=== PATIENT | female | born 1990 | race Hispanic/Latino ===

== ENCOUNTER 2019-03-08 15:18 | Inpatient (IN) | payer MEDICAID, OTHER ==
[~2019-03-08] VITALS: Ht 149.9 cm; Wt 71.7 kg
[~2019-03-08 15:18] MED LIST: OMEP-272 PO; OMEP40CA37 PO; PROM25 PO
[2019-03-08 16:00] VITALS: BP 102/61
[2019-03-08 16:40] LABS: APPEARANCE,URINE CLEAR (CLEAR); BILIRUBIN,URINE SMALL (NEGATIVE); COLOR,URINE YELLOW (YELLOW); GLUCOSE, URINE (UA) NEGATIVE (NEGATIVE); KETONES,URINE >=80 mg/dL (NEGATIVE); LEUKOCYTE ESTERASE ,URINE NEGATIVE (NEGATIVE); NITRATE,URINE NEGATIVE (NEGATIVE); OCCULT BLOOD,URINE SMALL (NEGATIVE); PROTEIN,URINE TRACE mg/dL (NEGATIVE); UROBILINOGEN,URINE 0.2 mg/dL (0.2-1.0)
[2019-03-08 16:49] LABS: BACTERIA,URINE Few /HPF (None Seen); MUCUS,URINE Moderate LPF (None Seen)
[2019-03-08] MEDS: ONDANSETRON HCL 4 MG/2 ML VIAL IVP PRN (16:54)
[2019-03-08] MEDS: DEXTROSE 5%-LACTATED RINGERS 1,000 ML IV SCH ×2 (16:54→22:42)
[2019-03-08 19:20] VITALS: BP 114/72
--- NOTE | 2019-03-08 19:20 | NUR ---
Activity: Patient awake in bed claimed, " I felt nauseated and my throat hurts because of throwing up more with saliva. Can I have medication for heartburn." Patient inform that Dr. Rae was called and waited for him to call back or if not we will call him back again. Plan of care discussed with patient verbalizes understanding.
--- NOTE | 2019-03-08 19:55 | NUR ---
Communication: Dr. Rae called via Telephone informed that patient requested medication for heartburn because she felt her throat hurts because of the vomiting. Received order from Dr. Rae to give Mylanta 30 ml q 6 hours p.o. for Nausea. Orders noted.
[2019-03-08] MEDS ORDERED: MAG HYDROX/AL HYDROX/SIMETH ES 30 ML SUSP UDCUP PO PRN (19:56)
--- NOTE | 2019-03-08 22:40 | NUR ---
Patient vomited: Patient claimed, " I vomited a while ago." Vomitus was light green in color watery. " Informed that I'll give Zofran at 0055 due time. Patient verbalizes understanding.
[2019-03-08 23:47] VITALS: BP 95/62
[2019-03-09] MEDS: ONDANSETRON HCL 4 MG/2 ML VIAL IVP PRN (01:12)
[2019-03-09] MEDS: DEXTROSE 5%-LACTATED RINGERS 1,000 ML IV SCH ×4 (04:33→23:45)
[2019-03-09 04:35] VITALS: BP 115/56
[2019-03-09 07:22] LABS: CREATININE 0.7 mg/dL (0.5-1.5); THYROID STIMULATING HORMONE 1.78 uIU/mL (0.36-3.74)
[2019-03-09 07:33] VITALS: BP 109/54
[2019-03-09] MEDS: PROMETHAZINE HCL 25 MG/ML 1ML AMPULE IM PRN ×2 (08:46→18:58)
[2019-03-09] MEDS: FAMOTIDINE/PF 20 MG/2 ML VIAL IV SCH ×2 (09:15→21:32)
[2019-03-09 11:51] VITALS: BP 103/56
[2019-03-09 16:03] VITALS: BP 103/56
[2019-03-09 19:35] VITALS: BP 98/52
[2019-03-09 23:55] VITALS: BP 91/48
[2019-03-10 03:36] VITALS: BP 122/71
[2019-03-10 07:28] VITALS: BP 104/56
[2019-03-10] MEDS: FAMOTIDINE/PF 20 MG/2 ML VIAL IV SCH ×2 (09:28→21:29)
[2019-03-10 11:44] VITALS: BP 111/67
--- NOTE | 2019-03-10 13:05 | NUR ---
NAUSEA PT ATE APPLESAUCE, FELT NAUSEOUS, DID NOT EAT REST OF MEAL, NO EMESIS, JUST NAUSEA, MEDICATED WITH PHENERGAN IM, WILL CONTINUE TO MONITOR
[2019-03-10] MEDS: PROMETHAZINE HCL 25 MG/ML 1ML AMPULE IM PRN (13:07)
[2019-03-10 16:04] VITALS: BP 112/67
[2019-03-10 19:30] VITALS: BP 104/57
[2019-03-11 00:20] VITALS: BP 93/53
[2019-03-11 04:16] VITALS: BP 93/50
[2019-03-11 07:40] VITALS: BP 118/70
[2019-03-11] MEDS: FAMOTIDINE/PF 20 MG/2 ML VIAL IV SCH (07:58)
--- NOTE | 2019-03-11 08:00 | NUR ---
DURING ASSESSMENT PATIENT STATES FEELING NAUSEATED A LITTLE BIT AND WAS GIVEN PEPCID. DR. JORDAN ROUNDED AT 0750 AND INDICATED PATIENT COULD BE DISCHARGED IF NO MORE EMESIS.
--- NOTE | 2019-03-11 10:00 | NUR ---
CHECKED ON PATIENT AND VERBALIZES NO NAUSEA AND NO EMESIS. PIV REMOVED AND INSTRUCTED PATIENT DISCHARGE INSTRUCTIONS WOULD BE GIVEN.
--- NOTE | 2019-03-11 10:55 | NUR ---
PATIENT WAS GIVEN DISCHARGE INSTRUCTIONS AND WAS TAKEN VIA W/C TO [facility] AND WAS DISCHARGED TO HER SPOUSE.
[2019-03-13] MEDS ORDERED: PROM25 PO (00:24)
== END 2019-03-11 10:55 | disposition home or self-care (01) | DRG 566 ==
LOC: WSH 15:18 → OBSVTOIN 15:18
PROVIDERS: ADMIT Specialist; ATTEND Specialist
DX: O21.0 Mild hyperemesis gravidarum (principal); Z3A.01 Less than 8 weeks gestation of pregnancy; Z88.8 Allergy status to other drugs, medicaments and biological substances
CPT/HCPCS: 36415; 80048; 81001; 84443; G0378; J2405; J2550; J3490

== ENCOUNTER 2019-09-04 03:53 | Observation (INO) | payer MEDICAID ==
[~2019-09-04] VITALS: Ht 149.9 cm; Wt 75.3 kg
[~2019-09-04 03:53] MED LIST changes: +FAMO-136 PO; -OMEP-272 PO; -OMEP40CA37 PO; +ONDA4TAB4 PO
[2019-09-04 04:22] LABS: APPEARANCE,URINE Clear (CLEAR); BILIRUBIN,URINE Negative (NEGATIVE); COLOR,URINE Yellow (YELLOW); GLUCOSE, URINE (UA) Negative (NEGATIVE); KETONES,URINE Negative (NEGATIVE); LEUKOCYTE ESTERASE ,URINE Small (NEGATIVE); NITRATE,URINE Negative (NEGATIVE); OCCULT BLOOD,URINE Negative (NEGATIVE); PH,URINE 6.5 (5.0-8.0); PROTEIN,URINE Negative (NEGATIVE); UROBILINOGEN,URINE 0.2 mg/dL (0.2-1.0)
[2019-09-04 04:29] LABS: AMPHET/METH SCREEN,URINE NEGATIVE (NEGATIVE); BARBITURATE SCREEN, URINE NEGATIVE (NEGATIVE); BENZODIAZEPINES SCREEN,URINE NEGATIVE (NEGATIVE); CANNABINOID SCREEN,URINE NEGATIVE (NEGATIVE); COCAINE SCREEN,URINE NEGATIVE (NEGATIVE); OPIATE SCREEN,URINE NEGATIVE (NEGATIVE); PHENCYCLIDINE SCREEN,URINE NEGATIVE (NEGATIVE)
[2019-09-04 04:52] VITALS: BP 132/80
[2019-09-04] MEDS ORDERED: TERBUTALINE SULFATE VIAL 1MG/ML SQ PRN (05:00)
[2019-09-04] MEDS ORDERED: LACTATED RINGERS 1000ML IV ONE (05:00)
[2019-09-04] MEDS ORDERED: LACTATED RINGERS 1000ML 1,000 ML IV SCH (05:00)
[2019-09-04 05:01] LABS: BACTERIA,URINE Few /HPF (None Seen); RBC,URINE 0-1 /HPF (0-1)
== END 2019-09-04 10:26 | disposition home or self-care (01) ==
LOC: EDH 03:53 → LDH 03:54
PROVIDERS: ADMIT Specialist; ATTEND Specialist
DX: O26.893 Other specified pregnancy related conditions, third trimester (principal); R10.2 Pelvic and perineal pain; O99.89 Other specified diseases and conditions complicating pregnancy, childbirth and the puerperium; M54.5 Low back pain; Z87.19 Personal history of other diseases of the digestive system; Z3A.31 31 weeks gestation of pregnancy
CPT/HCPCS: 80305; 81001; 99284; G0378 ×6; J7120; 96360; 96361

== ENCOUNTER 2019-10-15 02:16 | Observation (INO) | payer MEDICAID ==
[~2019-10-15] VITALS: Ht 149.9 cm; Wt 78.9 kg
[2019-10-15 02:30] VITALS: BP 125/78
[2019-10-15] MEDS ORDERED: LACTATED RINGERS 1000ML IV PRN (02:30)
[2019-10-15 02:42] LABS: APPEARANCE,URINE Turbid (CLEAR); BILIRUBIN,URINE Negative (NEGATIVE); COLOR,URINE Yellow (YELLOW); GLUCOSE, URINE (UA) Negative (NEGATIVE); KETONES,URINE Negative (NEGATIVE); LEUKOCYTE ESTERASE ,URINE Large (NEGATIVE); NITRATE,URINE Negative (NEGATIVE); OCCULT BLOOD,URINE Negative (NEGATIVE); PH,URINE 6.5 (5.0-8.0); PROTEIN,URINE Trace mg/dL (NEGATIVE); UROBILINOGEN,URINE 0.2 mg/dL (0.2-1.0)
[2019-10-15 02:55] LABS: BACTERIA,URINE Moderate /HPF (None Seen); RBC,URINE 0-1 /HPF (0-1)
[2019-10-15 02:56] LABS: SQUAMOUS EPITHELIAL CELL,UR Few /HPF (0-2)
[2019-10-15] MEDS ORDERED: LACTATED RINGERS 1000ML 1,000 ML IV PRN (03:22)
[2019-10-15] MEDS ORDERED: CLINDAMYCIN 600 MG/D5% WATER 50 ML IV SCH (03:30)
[2019-10-15 03:37] LABS: HEMATOCRIT 35.4 % (36-48); MEAN CORPUSCULAR HEMOGLOBIN 27.6 pg (27.0-33.0); MEAN CORPUSCULAR HGB CONC 32.8 g/dL (32.0-36.0); MEAN CORPUSCULAR VOLUME 84.3 fL (79-99); PLATELET COUNT (AUTO) 287 K/uL (130-400); RED CELL DISTRIBUTION WIDTH 14.1 % (11.0-15.5); WHITE BLOOD COUNT (AUTO) 12.7 K/uL (4.8-10.8)
--- NOTE | 2019-10-15 10:27 | NUR ---
CM NOTE PATIENT DISCHARGED HOME, GONE. PER NURSE, NO NEEDS VERBALIZED.
[2019-10-16 07:11] LABS: HEPATITIS Bs ANTIGEN SCREEN P Negative (Negative)
== END 2019-10-15 08:07 | disposition home or self-care (01) ==
LOC: EDH 02:16 → LDH 02:17
PROVIDERS: ADMIT Specialist; ATTEND Specialist
DX: O62.9 Abnormality of forces of labor, unspecified (principal); Z3A.37 37 weeks gestation of pregnancy
CPT/HCPCS: 36415; 81001; 85027; 86592; 86850; 86900; 86901; 87088; 87340; 96365; 99284; G0378 ×6; J3490; J7120 ×2; 96360; 96361

== ENCOUNTER 2019-12-28 06:08 | Day surgery (SDC) | payer MEDICAID ==
[2019-12-23 15:36] LABS: BASOPHILS % (AUTO) 0.2 % (0.0-5.0); EOSINOPHILS % (AUTO) 2.2 % (0.0-8.0); HEMATOCRIT 40.2 % (36-48); LYMPHOCYTES % (AUTO) 24.5 % (21.0-51.0); MEAN CORPUSCULAR HEMOGLOBIN 26.4 pg (27.0-33.0); MEAN CORPUSCULAR HGB CONC 31.8 g/dL (32.0-36.0); MEAN CORPUSCULAR VOLUME 83.1 fL (79-99); MONOCYTES % (AUTO) 9.3 % (3.0-13.0); NEUTROPHILS % (AUTO) 63.6 % (40.0-77.0); PLATELET COUNT (AUTO) 449 K/uL (130-400); RED BLOOD CELL COUNT(AUTO) 4.84 MIL/uL (4.00-5.50); RED CELL DISTRIBUTION WIDTH 12.9 % (11.0-15.5); WHITE BLOOD COUNT (AUTO) 9.7 K/uL (4.8-10.8)
[2019-12-27 10:20] VITALS: BP 124/69
[2019-12-28] VITALS (19 sets, daily range): BP systolic 113–136; BP diastolic 61–77
[~2019-12-28] VITALS: Ht 152.4 cm; Wt 67.9 kg
[~2019-12-28 06:08] MED LIST changes: -FAMO-136 PO; +LACTATED RINGERS 1000ML 1,000 ML IV SCH; +LORA-575 PO; -ONDA4TAB4 PO; +PANT40TA54 PO; -PROM25 PO
[2019-12-28] MEDS ORDERED: LIDOCAINE HCL MPF 1% 5ML VIAL ONE (07:48)
[2019-12-28] MEDS ORDERED: PROPOFOL 10 MG/ML 20ML VIAL IV ONE (07:48)
[2019-12-28] MEDS ORDERED: ROCURONIUM 10MG/1ML SYR 10 MG/ML ML ONE (07:48)
[2019-12-28] MEDS ORDERED: SUCCINYLCHOLINE CHLORIDE 20 MG/ML 10 ML VIAL ONE (07:48)
[2019-12-28] MEDS ORDERED: FENTANYL CITRATE PF 50 MCG/1 ML 2ML VIAL ONE ×2 (07:49→08:35)
[2019-12-28] MEDS ORDERED: GLYCOPYRROLATE 1 MG/5 ML SYRINGE ONE (08:26)
[2019-12-28] MEDS ORDERED: NEOSTIGMINE 5MG/5ML SYR IV ONE (08:26)
[2019-12-28] MEDS ORDERED: ONDANSETRON HCL 4 MG/2 ML VIAL ONE (08:27)
[2019-12-28] MEDS ORDERED: MEPERIDINE-PF 25 MG/ML SYG ONE ×2 (08:52→09:03)
== END 2019-12-28 11:45 | disposition home or self-care (01) ==
LOC: DAH 06:08
PROVIDERS: ATTEND Specialist
DX: Z30.2 Encounter for sterilization (principal); Z79.899 Other long term (current) drug therapy; Z98.890 Other specified postprocedural states; Z88.8 Allergy status to other drugs, medicaments and biological substances; Z82.49 Family history of ischemic heart disease and other diseases of the circulatory system; Z82.5 Family history of asthma and other chronic lower respiratory diseases
CPT/HCPCS: 36415; 58671; 84703; 85025; 86850; 86900; 86901; A4215 ×3; A4221; A4222; A4223; A4264; A4351; A4663; A6260; C1769 ×3; J0330; J2175 ×2; J2405; J2704; J2710; J3010 ×2; J3490 ×2; J7120 ×2; U0003